=== PATIENT | female | born 1950 | race Caucasian/White ===

== ENCOUNTER 2016-08-09 06:18 | Inpatient (IN) ==
[2016-08-09] MEDS ORDERED: CeFAZolin Pre 2,000 MG/100 ML 2,000 MG/100 ML BAG IVPB ONE (06:35)
[2016-08-09] MEDS ORDERED: Ondansetron 4 MG/2 ML VIAL ONE (07:04)
[2016-08-09] MEDS ORDERED: Lidocaine -MPF 4% 5 ML AMPUL ONE (07:04)
[2016-08-09] MEDS ORDERED: Lidocaine -MPF 2% 2 ML VIAL ONE (07:04)
[2016-08-09] MEDS ORDERED: Dexamethasone 4 MG/ML VIAL ONE (07:04)
[2016-08-09] MEDS ORDERED: *HR* Phenylephrine 10 MG/ML VIAL ONE (07:04)
[2016-08-09] MEDS ORDERED: *HR* Midazolam HCl 5 MG/5 ML VIAL IVP ONE (07:04)
[2016-08-09] MEDS ORDERED: EPHEDrine 50 MG/ML VIAL ONE (07:04)
[2016-08-09] MEDS ORDERED: *HR* Propofol 200 MG/20 ML VIAL IVP ONE (07:04)
[2016-08-09] MEDS ORDERED: *HR* Rocuronium Bromide 50 MG/5 ML VIAL ONE (07:04)
[2016-08-09] MEDS ORDERED: *HR* FentaNYL (PF) 100 MCG/2 ML VIAL ONE ×2 (07:04→13:46)
[2016-08-09] MEDS ORDERED: *HR* Succinylcholine 200 MG/10 ML VIAL IVP ONE (07:04)
[2016-08-09] MEDS: Ringers Solution, Lactated 1,000 ML IVC SCH ×4 (07:08→13:01)
[2016-08-09] MEDS ORDERED: *HR* Remifentanil 1 MG VIAL IVP ONE ×4 (07:11→13:01)
--- NOTE | 2016-08-09 07:15 | Anesthesia Evaluation PreOp ---
Date of Encounter: 08/09/16 Time of Encounter: 07:13 - Past History Planned Operation: Posterior Cervical Decompression C3-7 Cardiac History: HTN Pulmonary History: Denies Any Significant HX PANTS PRESSER History: Other (cervical and lumbar stenosis (bilateral UE and LE weakness and decreased sensation)) Other Medical History: GERD Anesthesia History: No Prior Anesthetic Complications, Past Anesthesia Alcohol Use: none Drug use: none Medications and Allergies Calcium/Magnesium/Vit D3 [Calcium 500 mg Tablet] 1 tab PO BID 11/19/15 [History] Cholecalciferol (D-3) [Vitamin D] 1,000 unit PO DAILY 11/19/15 [History] Duloxetine HCl [Cymbalta] 60 mg PO DAILY 11/19/15 [History] Furosemide [Lasix] 40 mg PO DAILY 11/19/15 [History] Lisinopril [Zestril] 20 mg PO DAILY 11/19/15 [History] Meloxicam [Mobic] 7.5 mg PO DAILY 11/19/15 [History] Multivitamin [Multivitamins] 1 tab PO DAILY 11/19/15 [History] Omeprazole [PriLOSEC] 20 mg PO DAILY 11/19/15 [History] Pregabalin [Lyrica] 75 mg PO DAILY 11/19/15 [History] Zolmitriptan [Zomig] 2.5 mg PO DAILY PRN 11/19/15 [History] OxyCODONE Immed Rel [Roxicodone 5 MG] 5 mg PO Q6HR PRN #60 tablet 11/20/15 [Rx] Allergies No Known Allergies Allergy (Verified 08/09/16 07:28) - Meds/Allergy Pre-op Review Medications Reviewed: Yes Allergies Reviewed: Yes Beta Blockers on Current Med List: No Anesthesia Results - Labs Laboratory Tests 08/06/16 08/06/16 08/06/16 09:05 09:05 09:05 WBC 4.7 Hgb 11.0 L Hct 33.1 L Plt Count 305 PT 10.0 INR 0.9 APTT 28.2 Sodium 139 Potassium 4.8 H BUN 12 Creatinine 0.86 - Imaging EKG: report reviewed (11/19/2015 SR, minimal voltage requirement for LVH) Anesthesia Exam O2 Sat Height 1.52 m Height 1.52 m Height 1.52 m Weight 72.121 kg Weight 72.121 kg Weight 72.121 kg O2 Sat by Pulse Oximetry 98 O2 Sat by Pulse Oximetry 98 Vital Signs Temp Pulse Resp BP Pulse Ox 97.6 F 73 18 173/90 98 08/09/16 06:46 08/09/16 06:46 08/09/16 06:46 08/09/16 06:46 08/09/16 06:46 Height: 5' Weight: 159 lbs NPO (# of Hours): 8 Pain Scale: 4 Pain Scale Used: Numeric (1 - 10) - HEENT Pupil (Motor): EOMI Mallampati: II Teeth: Normal Oral Opening: Greater than 3 - PANTS PRESSER LOC: Oriented PANTS PRESSER Motor: Normal Face, Deficit RUE, Deficit LUE, Deficit RLE, Deficit LLE PANTS PRESSER Sensory: Normal: Face, Deficit: RUE, LUE, RLE, LLE - Cardiac Rhythm: Regular Murmur: None - Pulmonary Breath Sounds: bilateral Clear Respiratory Effort: Symmetrical Anesthesia Assess/Plan ASA Score: 2 Modified Rocael Scale for Level of Consciousness: Cooperative, oriented, and tranquil Anesthetic Plan: General Monitoring Plan: Standard Monitors, A-Line Recovery Plan: PACU
[2016-08-09] MEDS ORDERED: Heparin 1,000 UNITS/500 mL NS 500 ML ONE (07:45)
--- NOTE | 2016-08-09 07:45 | History & Physical Report ---
Date of Encounter: 08/09/16 Time of Encounter: 07:35 24 Hour HP Update - Instructions Instructions: If the History and Physical is less than 30 days old and was completed prior to A.M. admission and or procedure and has NOT been updated on calendar day of procedure please complete this update prior to performing procedure. - Update Patient reports changes in Medical Condition: No Changes in examination, assessment, or condition: No Changes in Medication: No Preop tests/diagnostics Reviewed: Yes Pre-Op MRSA Screen: Negative Surgery Remains Indicated: Yes Consent for Planned Operative Procedure(s) Verified: Yes
[2016-08-09] MEDS ORDERED: Propofol 500 MG/50 ML INFUS..BTL ONE ×4 (07:46→10:44)
[2016-08-09] MEDS ORDERED: Ketamine *HR* 500 MG/10 ML MDV ONE (08:45)
[2016-08-09] MEDS ORDERED: *HR* Promethazine 25 MG/ML VIAL IVP PRN (10:31)
[2016-08-09] MEDS ORDERED: Ondansetron 4 MG/2 ML VIAL IVP ONE (10:31)
[2016-08-09] MEDS ORDERED: *HR* Labetalol 20 MG/4 ML SYRINGE IVP PRN (10:31)
[2016-08-09] MEDS ORDERED: PROPOFOL ONE (10:47)
[2016-08-09] MEDS ORDERED: *HR* HYDROmorphone 2 MG/ML SYRINGE ONE (13:42)
[2016-08-09] MEDS ORDERED: *HR* Labetalol 20 MG/4 ML SYRINGE IVP ONE ×2 (13:44→14:59)
--- NOTE | 2016-08-09 14:07 | Orthopedic Operative Note ---
Date of procedure: 08/09/16 Pre-op diagnosis: Cervical myelopathy, cervical stenosis, bilateral arm weakness Post-op diagnosis: same Operation/Findings: Posterior cervical decompression and fusion C3-C7:Cancellous chips and DBM putty. Patient was brought to the operative theater where she successfully underwent general endotracheal intubation. She was given antibiotics prior to the start of the procedure. Compression boots and stockings were used for deep vein thrombosis prophylaxis. A Joseph catheter was placed. Leads were placed on the upper extremities and lower extremities as well as the cranium. The neurologic monitoring personnel confirmed satisfactory readings prior to the start of the procedure. The patient was turned prone on the operative table. The area from the mid occipital to the mid thoracic spine was prepped and draped in the usual sterile fashion posteriorly. An incision was made and centered over the C3-C7 cervical spinous processes in the midline. The scoring incision was deepened through the cervical fascia. We used Bovie cautery and Hernandez elevators to carefully dissect the lateral masses and expose them from C3- C7. Radiographic confirmation was confirmed by the radiologist via a discussion. We then placed lateral mass screws at C3 ,left C4, C5, C6, and C7 bilaterally using standard techniques. 8 separate 3.5 x 12 mm lateral mass screws were placed uneventfully and confirmed via fluorographic views as having satisfactory placement. The right C4 lateral mass screw was removed after concerns of it being loose. After placement of the lateral mass screws, we turned our attention to the decompression. We removed the ligamentum flavum and interspinous and supraspinous ligaments at C6-7. We proceeded proximally with the decompression. This includes a laminectomy of C6, C5, C4, and C3. All intervening ligamentum flavum and ligamentous material was removed. Bone obtained from the laminectomies was saved in a separate sterile container for later use. After the decompression, the spinal cord could be clearly visualized from C3-C7 and was fully decompressed. It was seen to expand nicely. We copiously irrigated the wound. We then decorticated the facet joints and lateral masses from C3-4, C4-5, C5-6, and C6-7 bilaterally until bleeding bone was obtained. We then used the autograft bone obtained from the laminectomy/decompression from C3-C7 and placed it over the lateral masses and facet joints in these regions. We augmented and extended the graft by using cancellus chips and demineralized bone matrix putty. This material was placed in the lateral gutters along with the autograft. We then placed rods within the screw heads from C3-C7 bilaterally. We subsequently placed screw caps over the Rods and locked and finally tightened the construct in standard fashion. We then closed the wound in layers with 1 Vicryl for the Fascia, 2-0 Vicryl for the more superficial fascia and 2-0 Vicryl was used for skin closure. Dermabond was paced over the wound. Sterile dressing was placed over the wound as well. Cervical collar was placed. Patient was turned supine and extubated on the Hospital Bed. The patient was in good condition at the end of the procedure. All sponge counts, needle counts, and Instruments were correct at the end of the procedure. Anesthesia: GETA Surgeon: Clifford Marion Jr Estimated blood loss (cc): 300 Condition: stable Disposition: PACU
[2016-08-09] MEDS: *HR* HYDROmorphone (PF) 1 MG/ML SYRINGE IVP PRN ×4 (14:30→14:49)
[2016-08-09] MEDS ORDERED: *HR* Morphine 10 MG/ML VIAL ONE (14:43)
[2016-08-09] MEDS ORDERED: *HR* Metoprolol 5 MG/5 ML VIAL IVP ONE (14:43)
[2016-08-09] MEDS ORDERED: *HR* Meperidine 50 MG/ML SYRINGE ONE (15:03)
--- NOTE | 2016-08-09 16:26 | Anesthesia Evaluation Post Op ---
Date of Encounter: 08/09/16 Time of Encounter: 16:20 - Vital Signs Vital Signs: within baseline - Lungs Lungs: Clear Ascult./Percussion - Airway Airway: Non-obstructed - Cardiovascular Regular Rate, Baseline Rhythm - Mental Status Mental Status: Alert & Oriented, Answers Appropriately, Asleep with brisk response to light stimulation - Pain Pain Scale: 3 Pain Scale used: Numeric (1 - 10) - Nausea Vomiting Nausea Vomiting: Present - Hydration Hydration: Ice chips Notes: 08/09/16 16:25 pain is tolerable per pt - Discharge PostOp Status: Transfer Patient to floor (continuous pulse oximetry recommended)
[2016-08-09] MEDS ORDERED: Naloxone 0.4 MG/ML INJ IVP PRN (16:44)
[2016-08-09] MEDS ORDERED: Ondansetron 4 MG/2 ML VIAL IVP PRN (16:44)
[2016-08-09] MEDS: Gabapentin 300 MG CAPSULE PO SCH ×2 (17:40→21:08)
[2016-08-09] MEDS: ceFAZolin 2,000 MG in D5% in Water 100 ML IVPB SCH ×2 (18:05→23:49)
[2016-08-09] MEDS: *HR* OxyCODONE Immed Rel 5 MG TABLET PO PRN (19:01)
[2016-08-09] MEDS: SUMAtriptan succinate 50 MG TABLET PO PRN (21:07)
[2016-08-09] MEDS: CALCIUM PO SCH (21:08)
[2016-08-09] MEDS: MAGNESIUM PO SCH (21:08)
[2016-08-09] MEDS: VIT D3 PO SCH (21:08)
[2016-08-09] MEDS: *HR* Morphine 2 MG/ML SYRINGE IVP PRN (23:48)
[2016-08-10] MEDS: *HR* OxyCODONE Immed Rel 5 MG TABLET PO PRN ×5 (01:39→22:32)
[2016-08-10 06:28] LABS: Basophils % 0.1 %; Hematocrit 34.5 % (35.3-44.9); Hemoglobin 11.9 g/dL (11.5-15.4); Immature Granulocytes % 0.4 % (0-4); Immature Platelets 2.2 % (1.1-6.1); Lymphocytes # 1.3 K/mcL (0.6-4.6); Lymphocytes % 11.8 %; Mean Corpuscular HGB Conc 34.5 g/dL (31.6-35.5); Mean Corpuscular Hemoglobin 31.3 pg (28.0-33.3); Mean Corpuscular Volume 90.8 fL (83.0-100.0); Monocytes # 0.7 K/mcL (0.0-1.3); Monocytes % 6.6 %; Neutrophils # 9.1 K/mcL (1.6-8.9); Red Cell Distribution Width 12.6 % (11.5-14.5); Segmented Neutrophils % 81.1 %
[2016-08-10 06:31] LABS: Platelet Count 492 K/mcL (140-400)
[2016-08-10] MEDS: *HR* Morphine 2 MG/ML SYRINGE IVP PRN ×3 (06:51→20:21)
[2016-08-10] MEDS: SUMAtriptan succinate 50 MG TABLET PO PRN (06:52)
[2016-08-10] MEDS: Lisinopril 20 MG TABLET PO SCH (09:57)
[2016-08-10] MEDS: Loratadine 10 MG TABLET PO SCH (09:57)
[2016-08-10] MEDS: Multivit/Ca/Min/Fe/FA 1 TAB TABLET PO SCH (09:57)
[2016-08-10] MEDS: Gabapentin 300 MG CAPSULE PO SCH ×3 (09:57→20:32)
[2016-08-10] MEDS: CALCIUM PO SCH ×2 (09:58→20:33)
[2016-08-10] MEDS: Cholecalciferol (D-3) 1,000 UNIT TABLET PO SCH (09:58)
[2016-08-10] MEDS: MAGNESIUM PO SCH ×2 (09:58→20:33)
[2016-08-10] MEDS: VIT D3 PO SCH ×2 (09:58→20:33)
--- NOTE | 2016-08-10 12:15 | Spine Progress Note ---
Date of Encounter: 08/10/16 Time of Encounter: 12:14 Subjective Principal diagnosis: Cervical myelopathy, cervical stenosis Interval history: The patient i has significant pain complaints. Afebrile vital signs are stable. Dressing is clean dry and intact. Neurovascularly intact with regard to bilateral lower extremities. Fires all upper and lower extremity motor groups but persists with upper extremity weakness bilaterally which was apparent preoperatively.. . Assessment :stable. Plan mobilize ,continue and increase analgesics, discharge planning. Objective Vital signs: Vital Signs Temp Pulse Resp BP Pulse Ox 08/10/16 11:53 177/101 08/10/16 11:06 99.3 F 106 16 192/109 100 08/10/16 07:00 99.0 F 103 16 153/88 99 08/10/16 04:15 98.4 F 116 17 150/83 98 08/10/16 00:49 98.6 F 81 17 188/123 97 08/09/16 21:02 98.3 F 94 18 184/99 98 08/09/16 18:09 98.5 F 82 16 196/113 96 08/09/16 17:42 98.2 F 76 15 171/96 99 08/09/16 16:57 98.2 F 69 15 168/104 97 08/09/16 16:45 98.5 F 67 13 176/105 96 08/09/16 16:11 97.4 F L 65 16 96 08/09/16 16:01 97.5 F L 70 16 166/96 95 08/09/16 15:51 67 14 170/94 95 08/09/16 15:42 97.4 F L 63 16 168/96 96 08/09/16 15:32 63 16 162/98 96 08/09/16 15:21 70 14 171/105 94 08/09/16 15:11 97.3 F L 69 16 185/118 95 08/09/16 15:01 77 16 201/129 98 08/09/16 14:51 77 14 205/121 98 08/09/16 14:41 98.1 F 77 14 205/130 98 08/09/16 14:32 79 14 194/125 98 08/09/16 14:22 78 12 196/116 97 08/09/16 14:11 97.1 F L 81 12 179/109 96 Intake and Output 0608/10/16 08/10/16 23:59 07:59 15:59 Intake Total 100 / 100 100 / 100 Output Total 1800 / 1800 200 / 200 Balance -1700 / -1700 -100 / -100 Intake: IV Fluids 100 / 100 100 / 100 Ancef 2,000 MG In 100 / 100 100 / 100 Dextrose 5% 100 ML @ 200 mls/hr IVPB Q8H [facility] Rx#: [id number] Output: Urine 150 / 150 Urethral (Joseph) 150 / 150 Catheter 1800 / 1800 50 / 50 Other: Weight 74.6 kg Patient Weight 08/10/16 23:59 Weight 74.6 kg - Labs CBC & BMP: 08/10/16 06:15 Labs: Abnormal lab results WBC 11.2 K/mcL (4.3-11.1) H D 08/10/16 06:15 RBC 3.80 M/mcL (3.82-4.97) L 08/10/16 06:15 Hct 34.5 % (35.3-44.9) L 08/10/16 06:15 Plt Count 492 K/mcL (140-400) H D 08/10/16 06:15 MPV 9.0 fL (9.4-12.4) L 08/10/16 06:15 Neutrophils # 9.1 K/mcL (1.6-8.9) H 08/10/16 06:15 Consult Discharge Plan - Plan Referrals: Evangelist Abrams [Primary Care Provider] -
[2016-08-10] MEDS: Ringers Solution, Lactated 1,000 ML IVC SCH (15:59)
[2016-08-11] MEDS: *HR* OxyCODONE Immed Rel 5 MG TABLET PO PRN ×5 (02:31→19:49)
[2016-08-11] MEDS: Ringers Solution, Lactated 1,000 ML IVC SCH (02:32)
[2016-08-11] MEDS: SUMAtriptan succinate 50 MG TABLET PO PRN ×2 (05:10→22:04)
[2016-08-11] MEDS: *HR* Morphine 2 MG/ML SYRINGE IVP PRN ×3 (05:13→21:28)
[2016-08-11] MEDS: Gabapentin 300 MG CAPSULE PO SCH ×3 (07:36→21:29)
[2016-08-11] MEDS: Cholecalciferol (D-3) 1,000 UNIT TABLET PO SCH (07:37)
[2016-08-11] MEDS: Multivit/Ca/Min/Fe/FA 1 TAB TABLET PO SCH (07:37)
[2016-08-11] MEDS: Loratadine 10 MG TABLET PO SCH (07:37)
[2016-08-11] MEDS: VIT D3 PO SCH ×2 (07:37→21:24)
[2016-08-11] MEDS: CALCIUM PO SCH ×2 (07:37→21:24)
[2016-08-11] MEDS: MAGNESIUM PO SCH ×2 (07:37→21:24)
[2016-08-11] MEDS: Lisinopril 20 MG TABLET PO SCH (07:37)
--- NOTE | 2016-08-11 08:03 | Orthopedics Progress Note ---
Date of Encounter: 08/12/16 Time of Encounter: 08:15 - Assessment and Plan (1) Cervical myelopathy Current Visit: Yes Status: Chronic (2) Stenosis, cervical spine Current Visit: Yes Status: Chronic Continue current pain regimen. Will plan to D/c IV pain meds in near future. Continue PT. Awaiting placement. Subjective Principal diagnosis: Cervical myelopathy, cervical stenosis Interval history: POD#2 s/p posterior cervical fusion C3-5 Patient doing well this morning. Admits pain is much better controlled today compared to yesterday with additional medications added by Dr. Marion. Discussed therapy recommendations with patient who verbalized agreement to inpatient rehab. On exam, patient has cervical collar in place resting comfortably in chair. Denies worsened extremity pain or numbness since surgery. Neurovascularly intact. Continue current pain regimen. Continue PT. Awaiting rehab placement. Objective Vital signs: Vital Signs Temp Pulse Resp BP Pulse Ox 08/11/16 06:40 98.2 F 101 16 114/68 96 08/11/16 00:55 98.5 F 105 15 117/72 95 08/10/16 19:44 98.9 F 109 16 133/70 96 08/10/16 14:51 98.5 F 121 16 134/71 96 08/10/16 11:53 177/101 08/10/16 11:06 99.3 F 106 16 192/109 100 Intake and Output 08/10/16 08/11/16 08/11/16 23:59 07:59 15:59 Intake Total 240 / 240 1000 / 1000 Output Total 150 / 150 Balance 90 / 90 1000 / 1000 Intake: IV Fluids 1000 / 1000 Lactated Ringers 1,000 ML 1000 / 1000 @ 100 mls/hr IVC .Q10H [facility] Rx#:[id number] Oral 240 / 240 Output: Urine 150 / 150 Other: Meal clear liquid # Voids 1 - Labs CBC & BMP: 08/10/16 06:15 Labs: Abnormal lab results WBC 11.2 K/mcL (4.3-11.1) H D 08/10/16 06:15 RBC 3.80 M/mcL (3.82-4.97) L 08/10/16 06:15 Hct 34.5 % (35.3-44.9) L 08/10/16 06:15 Plt Count 492 K/mcL (140-400) H D 06/20/17 06:15 MPV 9.0 fL (9.4-12.4) L 08/10/16 06:15 Neutrophils # 9.1 K/mcL (1.6-8.9) H 08/10/16 06:15 - VTE Documentation of Mechanical Device: Intermittent pneumatic compression device Consult Discharge Plan - Plan Referrals: Evangelist Abrams [Primary Care Provider] - Briana Webster, PAC [Physician Engineering Supplies Sales] - 08/25/16 9:20 am
[2016-08-12] MEDS: *HR* OxyCODONE Immed Rel 5 MG TABLET PO PRN ×6 (00:43→22:05)
[2016-08-12] MEDS: *HR* Morphine 2 MG/ML SYRINGE IVP PRN ×2 (02:02→06:21)
[2016-08-12] MEDS: Multivit/Ca/Min/Fe/FA 1 TAB TABLET PO SCH (09:22)
--- NOTE | 2016-08-12 09:22 | Orthopedics Progress Note ---
Date of Encounter: 08/12/16 Time of Encounter: 07:45 - Assessment and Plan (1) Cervical myelopathy Current Visit: Yes Status: Chronic (2) Stenosis, cervical spine Current Visit: Yes Status: Chronic Continue current pain regimen. Continue PT. Discussed rehab placement with social work who states they will work on this today. Subjective Principal diagnosis: Cervical myelopathy, cervical stenosis Interval history: POD#2 s/p posterior cervical fusion C3-5 Patient doing well this morning. Admits pain is much better controlled even today compared to yesterday. Discussed with patient therapy's evaluation who is recommending inpatient rehab for patient. She states she is in agreement with this recommendation. Awaiting authorization for [facility] per nursing. On exam, patient has cervical collar in place and resting comfortably in bed. Neurovascularly intact. Continue current pain regimen. Continue PT. Awaiting notification of authorization for inpatient rehab. Objective Vital signs: Vital Signs Temp Pulse Resp BP Pulse Ox 08/12/16 06:56 99.1 F 115 18 157/99 96 08/12/16 04:18 99.4 F 102 17 165/93 95 08/12/16 02:03 156/85 08/12/16 00:46 99.2 F 99 17 178/106 93 08/11/16 20:08 98.6 F 107 17 164/83 95 08/11/16 14:38 98.5 F 104 16 146/83 95 08/11/16 10:04 98.9 F 108 16 160/80 96 08/11/16 09:54 101 16 114/68 96 Intake and Output 08/11/16 08/12/16 08/12/16 23:59 07:59 15:59 Intake Total 240 / 240 Output Total 350 / 350 Balance -350 / -350 240 / 240 Intake: Oral 240 / 240 Output: Urine 350 / 350 Other: Meal Breakfast Percent of Meal Consumed 50% # Voids 1 # Urine Diapers 1 Weight 76.8 kg Patient Weight 08/12/16 23:59 Weight 76.8 kg - Labs CBC & BMP: 08/10/16 06:15 Labs: Abnormal lab results WBC 11.2 K/mcL (4.3-11.1) H D 08/10/16 06:15 RBC 3.80 M/mcL (3.82-4.97) L 08/10/16 06:15 Hct 34.5 % (35.3-44.9) L 08/10/16 06:15 Plt Count 492 K/mcL (140-400) H D 08/10/16 06:15 MPV 9.0 fL (9.4-12.4) L 08/10/16 06:15 Neutrophils # 9.1 K/mcL (1.6-8.9) H 08/10/16 06:15 - VTE Documentation of Mechanical Device: Intermittent pneumatic compression device Consult Discharge Plan - Plan Referrals: Briana Webster, PAC [Physician System Engineer] - 08/25/16 9:20 am Evangelist Abrams [Primary Care Provider] -
[2016-08-12] MEDS: Loratadine 10 MG TABLET PO SCH (09:23)
[2016-08-12] MEDS: Cholecalciferol (D-3) 1,000 UNIT TABLET PO SCH (09:23)
[2016-08-12] MEDS: Lisinopril 20 MG TABLET PO SCH (09:23)
[2016-08-12] MEDS: Gabapentin 300 MG CAPSULE PO SCH ×3 (09:23→19:51)
[2016-08-12] MEDS: CALCIUM PO SCH ×2 (09:24→19:46)
[2016-08-12] MEDS: MAGNESIUM PO SCH ×2 (09:24→19:46)
[2016-08-12] MEDS: VIT D3 PO SCH ×2 (09:24→19:46)
--- NOTE | 2016-08-12 15:38 | Discharge Summary ---
Date of Encounter: 08/12/16 Time of Encounter: 15:36 - Discharge Medications Prescriptions: OxyCODONE Immed Rel [Roxicodone 5 MG] 5 mg PO Q4HR PRN #10 tablet PRN Reason: Severe Pain Home Medications: Calcium/Magnesium/Vit D3 [Calcium 500 mg Tablet] 1 tab PO BID 11/19/15 [History] Cholecalciferol (D-3) [Vitamin D] 1,000 unit PO DAILY 11/19/15 [History] Duloxetine HCl [Cymbalta] 60 mg PO DAILY 11/19/15 [History] Lisinopril [Zestril] 20 mg PO DAILY 11/19/15 [History] Meloxicam [Mobic] 7.5 mg PO DAILY 11/19/15 [History] Multivitamin [Multivitamins] 1 tab PO DAILY 11/19/15 [History] Omeprazole [PriLOSEC] 20 mg PO DAILY 11/19/15 [History] Gabapentin [Neurontin] 300 mg PO TID 08/09/16 [History] Loratadine [Allergy Relief] 10 mg PO DAILY 08/09/16 [History] Oxycodone HCl/Acetaminophen [Percocet 10-325 mg Tablet] 1 tab PO Q6H PRN [History] Sennosides/Docusate Sodium [Senna Plus] 1 each PO DAILY PRN 08/09/16 [History] OxyCODONE Immed Rel [Roxicodone 5 MG] 5 mg PO Q4HR PRN #10 tablet 08/12/16 [Rx] Allergies/Adverse Reactions: Allergies No Known Allergies Allergy (Verified 08/09/16 07:28) - Impressions ITS Impressions Cervical Spine X-Ray 08/09/16 00:00 IMPRESSION: One intraoperative view as described. D/ / 08/09/2016 14:14:11 Jose Hughes MD / [email or web address] Interpreting Provider: Jose Hughes MD Cervical Spine X-Ray 08/09/16 00:00 IMPRESSION: Intraprocedural fluoroscopic spot images as above. See separate procedure report for more information. D/ / Jevon Valdes MD / Jevon Valdes MD Interpreting Provider: Jevon Valdes MD Fluoroscopy 08/09/16 00:00 IMPRESSION: Intraprocedural fluoroscopic spot images as above. See separate procedure report for more information. D/ / Jevon Valdes MD / Jevon Valdes MD Interpreting Provider: Jevon Valdes MD Cervical Spine X-Ray 08/10/16 00:00 IMPRESSION: Postoperative changes fusion from C3-C7, without definite hardware abnormality. D/ / Jevon Valdes MD / Jevon Valdes MD Interpreting Provider: Jevon Valdes MD Date of admission: 08/09/16 16:12 Primary care physician: Evangelist Abrams Consults: 08/09/16 16:44 Consult to Occupational Therapy [CONS] Routine Comment: Evaluate, develop and implement POC Reason for Consult: Postoperative Consult to Physical Therapy [CONS] Routine Comment: Evaluate, develop and implement POC Reason for Consult: Postoperative Consult to Mortuary Technician [CONS] Routine Reason for SW Consult: Postoperative need for rehabilitation Consult to Spine Navigator [CONS] [CONS] Routine - Patient Status Disposition: Transfer SNF Condition: Good Functional capacity at discharge: wheelchair bound Overall status at discharge: patient is progressing back to baseline - Discharge Instructions Follow Up With: Briana Webster PAC [Physician Mining Technician] - 08/25/16 9:20 am Evangelist Abrams [Primary Care Provider] - - Diet and Activity Activity: as per physical therapy Diet: advance to your usual diet - Hospital Course Hospital course: Ms. Rodriguez is a 65 year old female The patient had an uneventful postoperative course. Progressed from intravenous analgesic needs to oral analgesic needs only. Remained neurovascularly intact and mobilized satisfactorily. All intraoperative and/or postoperative radiographic studies were satisfactory. Patient is discharged with plan for rehabilitation and follow-up in 2 weeks post discharge on analgesic medication and patient's home medications. - Time Spent with Patient Total time spent providing and/or coordinating discharge services: - VTE Documentation of Mechanical Device: Intermittent pneumatic compression device
[2016-08-13] MEDS: *HR* Morphine 2 MG/ML SYRINGE IVP PRN (01:52)
[2016-08-13] MEDS: *HR* OxyCODONE Immed Rel 5 MG TABLET PO PRN ×5 (03:32→20:31)
[2016-08-13] MEDS: Lisinopril 20 MG TABLET PO SCH (07:50)
[2016-08-13] MEDS: Multivit/Ca/Min/Fe/FA 1 TAB TABLET PO SCH (07:50)
[2016-08-13] MEDS: Cholecalciferol (D-3) 1,000 UNIT TABLET PO SCH (07:50)
[2016-08-13] MEDS: Loratadine 10 MG TABLET PO SCH (07:50)
[2016-08-13] MEDS: CALCIUM PO SCH (07:51)
[2016-08-13] MEDS: MAGNESIUM PO SCH (07:51)
[2016-08-13] MEDS: VIT D3 PO SCH (07:51)
[2016-08-13] MEDS: Gabapentin 300 MG CAPSULE PO SCH ×3 (12:02→19:35)
--- NOTE | 2016-08-13 12:50 | Orthopedics Progress Note ---
Date of Encounter: 08/13/16 Time of Encounter: 12:00 - Assessment and Plan (1) Cervical myelopathy Current Visit: Yes Status: Chronic (2) Stenosis, cervical spine Current Visit: Yes Status: Chronic Continue current pain regimen. Continue PT. Awaiting social work to receive approval for placement. Subjective Principal diagnosis: Cervical myelopathy, cervical stenosis Interval history: POD#3 s/p posterior cervical fusion C3-5 Patient doing well this morning. Admits pain is well controlled. States higher level at the moment as she had therapy earlier this morning. On exam, patient has without cervical collar resting in bed. Neurovascularly intact. Continue current pain regimen. Continue PT. Awaiting authorization for placement. Communicated with Social work. Social work awaiting facility approval. Objective Vital signs: Vital Signs Temp Pulse Resp BP Pulse Ox 08/13/16 10:07 98.3 F 79 16 148/93 95 08/13/16 06:57 98 F 87 16 154/86 96 08/13/16 00:47 98.2 F 95 16 162/96 95 08/12/16 22:00 95 08/12/16 20:00 98 F 98 17 146/82 95 08/12/16 15:07 98.7 F 112 16 152/91 93 Intake and Output 08/12/16 08/13/16 08/13/16 23:59 07:59 15:59 Intake Total 240 / 240 150 / 150 Output Total 100 / 100 300 / 300 Balance 140 / 140 -150 / -150 Intake: Oral 240 / 240 150 / 150 Output: Urine 100 / 100 300 / 300 Other: Meal Dinner Percent of Meal Consumed 10% # Voids 1 # Urine Diapers 1 Weight 76.4 kg Patient Weight 08/13/16 23:59 Weight 76.4 kg - Labs CBC & BMP: 08/10/16 06:15 Labs: Abnormal lab results WBC 11.2 K/mcL (4.3-11.1) H D 08/10/16 06:15 RBC 3.80 M/mcL (3.82-4.97) L 08/10/16 06:15 Hct 34.5 % (35.3-44.9) L 08/10/16 06:15 Plt Count 492 K/mcL (140-400) H D 08/10/16 06:15 MPV 9.0 fL (9.4-12.4) L 08/10/16 06:15 Neutrophils # 9.1 K/mcL (1.6-8.9) H 08/10/16 06:15 - VTE Documentation of Mechanical Device: Intermittent pneumatic compression device Consult Discharge Plan - Plan Referrals: Briana Webster PAC [Physician Vaccine Key Customer Leader] - 08/25/16 9:20 am Evangelist Abrams [Primary Care Provider] - Prescriptions: OxyCODONE Immed Rel [Roxicodone 5 MG] 5 mg PO Q4HR PRN #10 tablet PRN Reason: Severe Pain OxyCODONE Immed Rel [Roxicodone 5 MG] 5 mg PO Q6HR PRN #40 tablet PRN Reason: Severe Pain
[2016-08-13] MEDS: Sennosides/Docusate Sodium TABLET PO PRN (17:08)
[2016-08-14] MEDS: *HR* OxyCODONE Immed Rel 5 MG TABLET PO PRN ×6 (00:53→21:53)
--- NOTE | 2016-08-14 02:07 | Spine Progress Note ---
Date of Encounter: 08/14/16 Time of Encounter: 02:06 Subjective Principal diagnosis: Cervical myelopathy, cervical stenosis Interval history: The patient has significant improvement in pain control. Afebrile vital signs are stable. Dressing is clean dry and intact. Neurovascularly intact with regard to bilateral lower extremities. Fires all upper and lower extremity motor groups but persists with upper extremity weakness bilaterally which was apparent preoperatively.. . Assessment :stable. Plan mobilize ,continue and increase analgesics, discharge planning, awaiting rehabilitation placement. Objective Vital signs: Vital Signs Temp Pulse Resp BP Pulse Ox 08/14/16 00:00 97.5 F L 89 18 160/90 96 08/13/16 20:14 97.9 F 87 19 154/92 96 08/13/16 14:08 98.5 F 104 16 148/87 95 08/13/16 10:07 98.3 F 79 16 148/93 95 08/13/16 06:57 98 F 87 16 154/86 96 Intake and Output 08/13/16 08/13/16 08/14/16 15:59 23:59 07:59 Intake Total 600 / 600 200 / 200 100 / 100 Output Total 900 / 900 350 / 350 Balance -300 / -300 -150 / -150 100 / 100 Intake: Oral 600 / 600 200 / 200 100 / 100 Output: Urine 900 / 900 350 / 350 Other: # Voids 1 - Labs CBC & BMP: 08/10/16 06:15 Labs: Abnormal lab results WBC 11.2 K/mcL (4.3-11.1) H D 08/10/16 06:15 RBC 3.80 M/mcL (3.82-4.97) L 08/10/16 06:15 Hct 34.5 % (35.3-44.9) L 08/10/16 06:15 Plt Count 492 K/mcL (140-400) H D 08/10/16 06:15 MPV 9.0 fL (9.4-12.4) L 08/10/16 06:15 Neutrophils # 9.1 K/mcL (1.6-8.9) H 08/10/16 06:15 Consult Discharge Plan - Plan Referrals: Briana Webster PAC [Physician Solar Installation Helper] - 08/25/16 9:20 am Evangelist Abrams [Primary Care Provider] - Prescriptions: OxyCODONE Immed Rel [Roxicodone 5 MG] 5 mg PO Q4HR PRN #10 tablet PRN Reason: Severe Pain OxyCODONE Immed Rel [Roxicodone 5 MG] 5 mg PO Q6HR PRN #40 tablet PRN Reason: Severe Pain
[2016-08-14] MEDS: Multivit/Ca/Min/Fe/FA 1 TAB TABLET PO SCH (07:55)
[2016-08-14] MEDS: Cholecalciferol (D-3) 1,000 UNIT TABLET PO SCH (07:55)
[2016-08-14] MEDS: Gabapentin 300 MG CAPSULE PO SCH ×3 (07:56→21:02)
[2016-08-14] MEDS: Lisinopril 20 MG TABLET PO SCH (07:56)
[2016-08-14] MEDS: Loratadine 10 MG TABLET PO SCH (07:56)
[2016-08-14] MEDS: SUMAtriptan succinate 50 MG TABLET PO PRN (12:43)
[2016-08-14] MEDS: Sennosides/Docusate Sodium TABLET PO PRN (17:42)
[2016-08-15] MEDS: *HR* OxyCODONE Immed Rel 5 MG TABLET PO PRN ×6 (01:53→23:56)
[2016-08-15] MEDS: SUMAtriptan succinate 50 MG TABLET PO PRN ×2 (03:01→16:23)
[2016-08-15] MEDS: Multivit/Ca/Min/Fe/FA 1 TAB TABLET PO SCH (09:40)
[2016-08-15] MEDS: Loratadine 10 MG TABLET PO SCH (09:40)
[2016-08-15] MEDS: Lisinopril 20 MG TABLET PO SCH (09:40)
[2016-08-15] MEDS: Cholecalciferol (D-3) 1,000 UNIT TABLET PO SCH (09:40)
[2016-08-15] MEDS: Gabapentin 300 MG CAPSULE PO SCH ×3 (09:42→19:38)
--- NOTE | 2016-08-15 20:44 | Spine Progress Note ---
Date of Encounter: 08/15/16 Time of Encounter: 20:43 Subjective Principal diagnosis: Cervical myelopathy, cervical stenosis Interval history: The patient has significant improvement in pain control. States upper and lower extremity range of motion is improving. Afebrile vital signs are stable. Dressing is clean dry and intact. Neurovascularly intact with regard to bilateral lower extremities. Fires all upper and lower extremity motor groups but persists with upper extremity weakness bilaterally which was apparent preoperatively.. . Assessment :stable. Plan mobilize ,continue and increase analgesics, discharge planning, awaiting rehabilitation placement. Likely discharge to rehabilitation in a.m. August 16. Objective Vital signs: Vital Signs Temp Pulse Resp BP Pulse Ox 08/15/16 19:47 97.9 F 98 18 123/84 97 08/15/16 19:40 97 08/15/16 15:11 98.3 F 115 18 121/75 96 08/15/16 11:15 98.1 F 109 18 135/92 94 08/15/16 10:04 147/86 08/15/16 06:49 98.1 F 88 97 166/98 08/15/16 03:00 99.2 F 85 17 151/96 95 08/15/16 00:00 98.0 F 958 18 160/90 98 Intake and Output 08/15/16 08/15/16 08/15/16 07:59 15:59 23:59 Intake Total 500 / 500 360 / 360 240 / 240 Output Total 500 / 500 Balance 0 / 0 360 / 360 240 / 240 Intake: Oral 500 / 500 360 / 360 240 / 240 Output: Urine 500 / 500 Other: Meal Lunch Dinner Percent of Meal Consumed 25% 25% # Voids 2 Weight 76.4 kg Patient Weight 08/15/16 23:59 Weight 76.4 kg - Labs CBC & BMP: 08/10/16 06:15 Labs: Abnormal lab results WBC 11.2 K/mcL (4.3-11.1) H D 08/10/16 06:15 RBC 3.80 M/mcL (3.82-4.97) L 08/10/16 06:15 Hct 34.5 % (35.3-44.9) L 08/10/16 06:15 Plt Count 492 K/mcL (140-400) H D 08/10/16 06:15 MPV 9.0 fL (9.4-12.4) L 08/10/16 06:15 Neutrophils # 9.1 K/mcL (1.6-8.9) H 08/10/16 06:15 Consult Discharge Plan - Plan Referrals: Briana Webster PAC [Physician Building Rental Manager] - 08/25/16 9:20 am Evangelist Abrams [Primary Care Provider] - Prescriptions: OxyCODONE Immed Rel [Roxicodone 5 MG] 5 mg PO Q4HR PRN #10 tablet PRN Reason: Severe Pain OxyCODONE Immed Rel [Roxicodone 5 MG] 5 mg PO Q6HR PRN #40 tablet PRN Reason: Severe Pain
[2016-08-16] MEDS: *HR* OxyCODONE Immed Rel 5 MG TABLET PO PRN ×5 (04:05→21:06)
[2016-08-16] MEDS: Gabapentin 300 MG CAPSULE PO SCH ×3 (07:46→20:05)
[2016-08-16] MEDS: Multivit/Ca/Min/Fe/FA 1 TAB TABLET PO SCH (07:46)
[2016-08-16] MEDS: Loratadine 10 MG TABLET PO SCH (07:46)
[2016-08-16] MEDS: Lisinopril 20 MG TABLET PO SCH (07:46)
[2016-08-16] MEDS: Cholecalciferol (D-3) 1,000 UNIT TABLET PO SCH (07:46)
[2016-08-16] MEDS: Sennosides/Docusate Sodium TABLET PO PRN (11:20)
[2016-08-17] MEDS: *HR* OxyCODONE Immed Rel 5 MG TABLET PO PRN ×3 (01:25→10:48)
[2016-08-17] MEDS: Multivit/Ca/Min/Fe/FA 1 TAB TABLET PO SCH (08:17)
[2016-08-17] MEDS: Gabapentin 300 MG CAPSULE PO SCH (08:17)
[2016-08-17] MEDS: Cholecalciferol (D-3) 1,000 UNIT TABLET PO SCH (08:17)
[2016-08-17] MEDS: Lisinopril 20 MG TABLET PO SCH (08:17)
[2016-08-17] MEDS: Loratadine 10 MG TABLET PO SCH (08:18)
[2016-08-17 10:03] VITALS: BP 150/85
--- NOTE | 2016-08-17 10:56 | Orthopedics Progress Note ---
Date of Encounter: 08/17/16 Time of Encounter: 11:30 - Assessment and Plan (1) Cervical myelopathy Status: Chronic Patient heading to [facility]. To follow up in office as scheduled. (2) Stenosis, cervical spine Status: Chronic Subjective Principal diagnosis: Cervical myelopathy, cervical stenosis Interval history: POD#3 s/p posterior cervical fusion C3-5 Patient doing well this morning. Admits pain is well controlled. On exam, patient has without cervical collar resting in bed. Neurovascularly intact. On gurney heading out to ambulance. Patient heading to [facility]. To follow up in office as scheduled. Objective Vital signs: Vital Signs Temp Pulse Resp BP Pulse Ox 08/17/16 10:03 150/85 08/17/16 06:45 98.6 F 84 16 178/94 93 08/17/16 06:02 148/101 08/16/16 21:00 97 08/16/16 19:40 97.9 F 91 15 156/86 97 08/16/16 15:48 98.4 F 98 18 149/99 97 Intake and Output 08/16/16 08/17/16 08/17/16 23:59 07:59 15:59 Intake Total 360 / 360 840 / 840 Output Total 550 / 550 Balance -190 / -190 840 / 840 Intake: Oral 360 / 360 840 / 840 Output: Urine 550 / 550 Other: Meal Dinner Breakfast Percent of Meal Consumed 100% 100% # Urine Diapers 1 - Labs CBC & BMP: 08/10/16 06:15 Labs: Abnormal lab results WBC 11.2 K/mcL (4.3-11.1) H D 08/10/16 06:15 RBC 3.80 M/mcL (3.82-4.97) L 08/10/16 06:15 Hct 34.5 % (35.3-44.9) L 08/10/16 06:15 Plt Count 492 K/mcL (140-400) H D 08/10/16 06:15 MPV 9.0 fL (9.4-12.4) L 08/10/16 06:15 Neutrophils # 9.1 K/mcL (1.6-8.9) H 08/10/16 06:15 - VTE Documentation of Mechanical Device: Intermittent pneumatic compression device Consult Discharge Plan - Plan Additional Instructions: Discharge Instructions: Cervical Please call [facility] ([phone]), your Primary Care Physician, or report to the ER if you have any of the following symptoms: Fever greater that 101.5, increased pain/redness/drainage/odor for your incision site or any other concerning symptoms. ACTIVITY * May Shower * No Tub Baths * No Smoking * No Swimming * No Driving * Wear Collar when up walking MEDICATIONS: Upon discharge resume your home medications. Take all the medications as prescribed. Take a stool softener if taking narcotic pain medications. Stool softeners are only effective if you drink enough fluids. Drink 6-8 glass of water or fluids a day, unless this is not allowed for another health problem. Despite using stool softeners, if you haven't had a bowel movement in 3 days, please switch to a gentle laxative. Gentle laxatives are sold over the counter. You should have a bowel movement within 24 hours, if not call the office. You will be discharged from the hospital with a prescription for pain medication. You are encouraged to decrease the use of narcotic pain medication as tolerated. Should you require a refill, please call the office. It is best to call 48-72 hours in advance of needing a prescription refill so you don't run out of medication. WOUND CARE: Leave steri-strips in place until they fall off on their own. daily dressing change. FOLLOW-UP: Please follow up with your surgeon in the orthopedic clinic in 2 weeks from the day of surgery. References: [employer] ([email or web address]) Referrals: Briana Webster PAC [Physician Sludge Mill Operator] - 08/25/16 9:20 am Raymond Vicente DO [Partnered Physician] - Evangelist Abrams [Primary Care Provider] - Prescriptions: OxyCODONE Immed Rel [Roxicodone 5 MG] 5 mg PO Q4HR PRN #10 tablet PRN Reason: Severe Pain OxyCODONE Immed Rel [Roxicodone 5 MG] 5 mg PO Q6HR PRN #40 tablet PRN Reason: Severe Pain
== END 2016-08-17 11:20 | DRG 472 ==
LOC: SAMDAY 06:18 → 3NENU 16:12
PROVIDERS: ADMIT Orthopaedic Surgery Orthopaedic Surgery of the Spine; ATTEND Orthopaedic Surgery Orthopaedic Surgery of the Spine